=== PATIENT | female | born 1950 | race Caucasian/White ===

== ENCOUNTER 2016-05-29 19:18 | Emergency (ER) | payer OTHER ==
[2016-05-29] MEDS ORDERED: DUONEB (A & A) INH ONE (19:42)
[2016-05-29] MEDS ORDERED: DECADRON IM ONE (19:43)
--- NOTE | 2016-05-29 19:54 | PROVIDER DOCUMENTATION ---
HPI-Respiratory General - General Chief Complaint: Shortness of Breath Stated Complaint: ASTHMA ATTACH Time Seen by Provider: 05/29/16 19:32 Source: patient Allergies/Adverse Reactions: Patient Allergies Allergy/AdvReac Type Severity Reaction Status Date / Time No Known Allergies Allergy Verified 05/29/16 19:27 Home Medications: Home Medication List Medication Instructions Recorded Confirmed Last Taken Type Albuterol Sulfate Inhaler 2 puff INH Q6H PRN PRN 11/18/13 01/27/16 02/21/15 08: 00 History [Ventolin Hfa] Bisoprolol Fumarate/Hctz 1 each PO DAILY 11/18/13 01/27/16 02/21/15 08:00 History [Bisoprolol-Hctz 2.5-6.25 mg Tb] Celecoxib [Celebrex] 200 mg PO DAILY 11/18/13 01/27/16 02/21/15 08:00 History Cetirizine HCl [Zyrtec] 10 mg PO DAILY 11/18/13 01/27/16 02/21/15 08:00 History Esomeprazole [Nexium] 40 mg PO DAILY 11/18/13 01/27/16 02/21/15 08:00 History Levothyroxine [Synthroid] 112 microgm PO DAILY 11/18/13 01/27/16 02/21/15 08:00 History Metformin HCl [Metformin HCl ER] 2,000 mg PO QAM 11/18/13 01/27/16 02/21/15 08: 00 History Mometasone Nasal [place] [Nasonex 1 spray BRENDA DAILY 11/18/13 01/27/16 02/21/15 08: 00 History Nasal [place]] Montelukast [Singulair] 10 mg PO DAILY 11/18/13 01/27/16 02/21/15 08:00 History SIMVAstatin [Zocor] 40 mg PO QHS 11/18/13 01/27/16 1 Day Ago History Tiotropium [place] Inhaler 1 puff INH RTDAILY 11/18/13 01/27/16 02/21/15 08:00 History [Spiriva] Zolpidem Tartrate 5 mg PO QHS 11/18/13 01/27/16 1 Day Ago History Oxycodone/APAP 10 mg/325 mg 1 tab PO Q4-6H PRN PRN 02/21/15 01/27/16 02/21/15 11 :00 History [Percocet-10] Albuterol [Albuterol Neb] 2.5 mg INH Q4H PRN PRN #30 neb 05/29/16 Unknown Rx Amoxicillin/Pot Clavulanate 875 mg PO Q12HR #14 tablet 05/29/16 Unknown Rx [Augmentin] Prednisone 20 mg PO DAILY #15 tablet 05/29/16 Unknown Rx - History of Present Illness-Resp Nature of Presenting Problem: 65 y/o WF c/o cough, SOB, wheezing x 1 week. Pt states hx of asthma in the past and has been using at home inhaler and nebulizers with little relief. States that cough was productive initially with yellow mucus, now not productive. Mucinex DM, tussin, and old Rx of keflex tried at home. Denies any other sxs, including sore throat, fever, N/V/D/C. Review of Systems - Adult - REVIEW OF SYSTEMS - ADULT Constitutional: reports: no symptoms reported. denies: chills, fever Eyes: reports: no symptoms reported. denies: blurred vision, double vision Ears, Nose, Mouth & Throat: reports: no symptoms reported. denies: ear pain, nose pain, throat pain Cardiovascular: reports: no symptoms reported. denies: chest pain, palpitations Respiratory: reports: see HPI, cough, shortness of breath, wheezing Gastrointestinal: reports: no symptoms reported. denies: abdominal pain, diarrhea, nausea, vomiting Genitourinary: reports: no symptoms reported. denies: dysuria, frequency Musculoskeletal: reports: no symptoms reported. denies: joint pain, joint swelling Integumentary: reports: no symptoms reported. denies: nail changes, rash Neurological: reports: no symptoms reported Psychiatric: reports: no symptoms reported Endocrine: reports: no symptoms reported. denies: cold intolerance, heat intolerance Hematologic/Lymphatic: reports: no symptoms reported. denies: easy bruising, prolonged bleeding Allergic/Immunologic: reports: no symptoms reported All Other Systems: Reviewed and Negative Past History - Adult - PAST MEDICAL HISTORY-ADULT Review of Records: reports: Nursing Assessment Review, Medications Reviewed Cardiovascular: reports: HTN Respiratory: reports: asthma Musculoskeletal: reports: other (new wrist pain) Endocrine/Immune: reports: Diabetes - PRIOR SURGERIES/PROCEDURES Surgical/Procedure History: reports: hysterectomy, tonsillectomy, back/neck - IMMUNIZATION STATUS Childhood Immunizations: See Nurse Assessment Flu Vaccine: See Nurse Assessment - SOCIAL HISTORY Smoking: quit greater than 1 year Alcohol Use Frequency: never Physical Exam-General - PHYSICAL EXAM-ADULT Initial Vital Signs Reviewed: Yes - CONSTITUTIONAL General Appearance: alert, mild distress - EYES Eyes: pink conjunctivae - HEAD, EARS, NOSE, MOUTH & THROAT HENMT: moist mucous membranes - NECK Neck: supple, normal inspection. negative: lymphadenopathy - RESPIRATORY Respiratory: decreased breath sounds, wheezing. negative: no respiratory distress, no accessory muscle use, crackles, rales, rhonchi, stridor - CARDIOVASCULAR Cardiovascular: regular rate, rhythm. negative: bradycardia, tachycardia - GASTROINTESTINAL (ABDOMEN) Abdominal Exam: normal bowel sounds, non tender, soft - MUSCULOSKELETAL Back Exam: normal inspection Extremity: normal gait - SKIN Integumentary: normal color, normal turgor, warm/dry - NEUROLOGIC Neurologic: negative: aphasia - PSYCHIATRIC Psych/Mental Status: normal mood/affect, normal thought content, normal thought process, oriented x 3 Progress - PLAN OF CARE/RESULTS Progress/Plan/Lab Results: Laboratory Tests 05/29/16 05/29/16 19:55 19:55 WBC 8.69 RBC 4.35 Hgb 11.9 L Hct 34.7 L MCV 79.8 L MCH 27.4 MCHC 34.3 RDW Std Deviation 14.7 H Plt Count 321 MPV 9.9 Immature Gran % (Auto) 0.6 H Neut % (Auto) 53.9 Lymph % (Auto) 33.0 [place] % (Auto) 7.9 Eos % (Auto) 4.4 Baso % (Auto) 0.2 Immature Gran # (Auto) 0.05 H Neut # (Auto) 4.68 Lymph # (Auto) 2.87 [place] # (Auto) 0.69 H Eos # (Auto) 0.38 Baso # (Auto) 0.02 Sodium 137 Potassium 3.8 Chloride 101 Carbon Dioxide 21 L Anion Gap 15 BUN 15 Creatinine 0.8 Estimated GFR/1.73 m2 > 60 BUN/Creatinine Ratio 19 Glucose 100 Calculated Osmolality 275 Calcium 9.8 Total Bilirubin 0.40 AST 18 ALT 14 Alkaline Phosphatase 101 Total Protein 7.4 Albumin 4.5 Globulin 3.0 Albumin/Globulin Ratio 2.0 Orders Category Date Time Status CHEST-2 VIEWS [RAD] Stat Exams 05/29/16 19:42 Taken CBC WITH ELECTRONIC DIFF [HEME] Stat Lab 05/29/16 19:55 Completed COMPREHENSIVE METABOLIC PANEL [CHEM] Stat Lab 05/29/16 19:55 Completed Albuterol 2.5MG/Ipratrop 0.5MG [Duoneb (A & A)] Med 05/29/16 19:42 Discontinued 9 ml INH NOW ONE Dexamethasone [Decadron] Med 05/29/16 19:43 Discontinued 10 mg IM NOW ONE Aerosol Treatments Routine Oth 05/29/16 19:42 Active Aerosol Treatments Stat Oth 05/29/16 19:42 Active Aerosol Treatments Stat Oth 05/29/16 19:42 Active Vital Signs Temp Pulse Resp BP Pulse Ox 05/29/16 19:30 153/83 05/29/16 19:27 98.1 F 80 18 99 No Known Allergies Allergy (Verified 05/29/16 19:27) Albuterol Sulfate Inhaler [Ventolin Hfa] 2 puff INH Q6H PRN PRN 11/18/13 Bisoprolol Fumarate/Hctz [Bisoprolol-Hctz 2.5-6.25 mg Tb] 1 each PO DAILY Celecoxib [Celebrex] 200 mg PO DAILY 11/18/13 Cetirizine HCl [Zyrtec] 10 mg PO DAILY 11/18/13 Esomeprazole [Nexium] 40 mg PO DAILY 11/18/13 Levothyroxine [Synthroid] 112 microgm PO DAILY 11/18/13 Metformin HCl [Metformin HCl ER] 2,000 mg PO QAM 11/18/13 Mometasone Nasal [place] [Nasonex Nasal [place]] 1 spray BRENDA DAILY 11/18/13 Montelukast [Singulair] 10 mg PO DAILY 11/18/13 SIMVAstatin [Zocor] 40 mg PO QHS 11/18/13 Tiotropium [place] Inhaler [Spiriva] 1 puff INH RTDAILY 11/18/13 Zolpidem Tartrate 5 mg PO QHS 11/18/13 Oxycodone/APAP 10 mg/325 mg [Percocet-10] 1 tab PO Q4-6H PRN PRN 02/21/15 Laboratory 05/29/16 05/29/16 19:55 19:55 WBC 8.69 RBC 4.35 Hgb 11.9 L Hct 34.7 L MCV 79.8 L MCH 27.4 MCHC 34.3 RDW Std Deviation 14.7 H Plt Count 321 MPV 9.9 Immature Gran % (Auto) 0.6 H Neut % (Auto) 53.9 Lymph % (Auto) 33.0 [place] % (Auto) 7.9 Eos % (Auto) 4.4 Baso % (Auto) 0.2 Immature Gran # (Auto) 0.05 H Neut # (Auto) 4.68 Lymph # (Auto) 2.87 [place] # (Auto) 0.69 H Eos # (Auto) 0.38 Baso # (Auto) 0.02 Sodium 137 Potassium 3.8 Chloride 101 Carbon Dioxide 21 L Anion Gap 15 BUN 15 Creatinine 0.8 Estimated GFR/1.73 m2 > 60 BUN/Creatinine Ratio 19 Glucose 100 Calculated Osmolality 275 Calcium 9.8 Total Bilirubin 0.40 AST 18 ALT 14 Alkaline Phosphatase 101 Total Protein 7.4 Albumin 4.5 Globulin 3.0 Albumin/Globulin Ratio 2.[address] Luna; he agreed with d/c plan. Discussed results and medication use with pt. - XRAY 1 XRAY Study: Chest XRAY Interpretation: No PNA Departure - Departure Time of Disposition Order: 20:35 DIAGNOSIS: Bronchitis Asthma Qualifiers: Asthma severity: unspecified severity Asthma complication type: uncomplicated Qualified Code(s): J45.909 - Unspecified asthma, uncomplicated Disposition: HOME 01 Certified Medical Emergency: Emergent Condition: Stable Additional Instructions: Follow up with PCP for further management. Take medications as directed. ED Follow Up Instructions: You have been treated by a care provider in the Emergency Department. These instructions are being provided to you so you can have an understanding of how to care for yourself upon discharge. Upon discharge from the Emergency Department, you are responsible for making arrangements for follow-up care by a physician of your choice. Take all prescribed medications as directed. Return to the Emergency Department immediately for any new or worsening symptoms. You may call the Physician Referral phone number at [phone] to obtain a list of Physicians who are taking new patients. Prescriptions: Albuterol [Albuterol Neb] 2.5 mg INH Q4H PRN PRN #30 neb PRN Reason: Shortness Of Breath Amoxicillin/Pot Clavulanate [Augmentin] 875 mg PO Q12HR #14 tablet Prednisone 20 mg PO DAILY #15 tablet Referrals: Gary Dickinson MD [Primary Care Provider] - Forms: Return to School/Parent Work Instructions: Asthma, Adult, Amoxicillin capsules or tablets, Prednisone tablets, Albuterol inhalation solution, Acute Bronchitis Attestation - Physician/ SANTOSH Attestation Patient care was provided by Advanced Practice Provider:: Yes Advanced Practice Provider:: Nicole Hayden Advanced Practice Provider documentation review:: The Mid-level provider documentation, treatment plan and medical decision making was reviewed by the physician who agrees with all treatment and medical decision making by the MLP.
[2016-05-29 20:12] LABS: MANUAL DIFF NEEDED? NO
[2016-05-29 20:15] LABS: BASO% 0.2 % (0.0-0.8); EOS# 0.38 X1000 (0.0-0.7); EOS% 4.4 % (0.0-10.0); HEMATOCRIT 34.7 % (37.0-47.0); HEMOGLOBIN 11.9 g/dL (12.0-16.0); IMM GRAN# 0.05 X1000 (0.0-0.04); IMM GRAN% 0.6 % (0.0-0.5); LYMPH# 2.87 X1000 (1.2-3.4); MCH 27.4 PG (27-31); MCHC 34.3 g/dL (33-37); MCV 79.8 FL (81-99); MONO# 0.69 X1000 (0.11-0.59); MONO% 7.9 % (1.7-9.3); MPV 9.9 FL (7.4-10.4); NEUT% 53.9 % (42.2-75.2); PLT 321 X1000 (130-400); RBC 4.35 XMIL (4.2-5.4)
[2016-05-29 20:31] LABS: AGAP 15; ALBUMIN 4.5 g/dL (3.5-5.0); ALKALINE PHOSPHATASE 101 U/L (32-104); BUN 15 mg/dL (8-22); CALCIUM 9.8 mg/dL (8.8-10.2); CHLORIDE 101 mmol/L (98-107); COSMO 275; GOT 18 U/L (10-30); GPT 14 U/L (10-36); POTASSIUM 3.8 mmol/L (3.5-5.1); SODIUM 137 mmol/L (136-145); TCO2 21 mmol/L (25-35); TOTAL PROTEIN 7.4 g/dL (6.3-8.3)
[2016-05-29] MEDS ORDERED: DUONEB (A & A) ONE (20:36)
[2016-05-29 21:18] VITALS: BP 141/69
--- NOTE | 2016-05-30 07:54 | Diag Imaging Result Document ---
PROCEDURE NAME: CHEST-2 VIEWS - 05/29/2016 CHEST X-RAY, 2 VIEWS: COMPARISON: None. FINDINGS: The lungs are normally expanded and clear. Heart size and mediastinal contours are normal. No pneumothorax or pleural effusion. IMPRESSION: Negative exam.
== END 2016-05-29 21:18 | disposition home or self-care (01) ==
LOC: P.ED 19:18
DX: J40 Bronchitis, not specified as acute or chronic (principal); J45.909 Unspecified asthma, uncomplicated; R06.02 Shortness of breath; R05 Cough; R06.2 Wheezing; I10 Essential (primary) hypertension; E11.9 Type 2 diabetes mellitus without complications; Z79.899 Other long term (current) drug therapy; Z87.891 Personal history of nicotine dependence
CPT/HCPCS: 71020; 80053; 85025; 94640; 96372